=== PATIENT | female | born 2000 | race Caucasian/White ===

== ENCOUNTER 2020-04-17 09:05 | Emergency (ER) | payer MEDICAID ==
[~2020-04-17] VITALS: Ht 167.6 cm; Wt 75.0 kg
[2020-04-17] MEDS ORDERED: ACETAMINOPHEN 325MG TABLET PO ONE (09:45)
[2020-04-17] MEDS ORDERED: KETOROLAC 30MG/ML VIAL IM ONE (11:00)
[2020-04-17 11:04] VITALS: BP 101/54
== END 2020-04-17 11:21 | disposition home or self-care (01) ==
LOC: ER 09:05
DX: R05 Cough (principal); Z20.828 Contact with and (suspected) exposure to other viral communicable diseases; J45.909 Unspecified asthma, uncomplicated; J02.9 Acute pharyngitis, unspecified
CPT/HCPCS: 71045; 81025; 96372; 99284; C9803; J1885; U0003

== ENCOUNTER 2020-05-20 12:05 | Emergency (ER) | payer MEDICAID ==
[~2020-05-20] VITALS: Ht 160 cm; Wt 79.0 kg
[2020-05-20 12:06] VITALS: BP 126/68
[2020-05-20 13:40] LABS: CLARITY URINE CLEAR (CLEAR); COLOR URINE YELLOW (YELLOW); KETONES URINE NEGATIVE (NEGATIVE); LEUKOCYTE ESTERASE URINE 1+ (NEGATIVE); NITRITE URINE NEGATIVE (NEGATIVE); OCCULT BLOOD URINE NEGATIVE (NEGATIVE); PH URINE 6.5 (4.5-8.0); PROTEIN URINE NEGATIVE (NEGATIVE); SPECIFIC GRAVITY URINE 1.023 (1.005-1.030); UROBILINOGEN URINE 0.2 E.U./dL (0.2-1.0)
[2020-05-20] MEDS ORDERED: CEFTRIAXONE SODIUM 250 MG/VIAL IM ONE (13:45)
[2020-05-20] MEDS ORDERED: LIDOCAINE HCL 1% 20ML VIAL (Pyxis) INJ INFIL ONE (13:45)
[2020-05-20] MEDS ORDERED: AZITHROMYCIN 500 MG TABLET PO ONE (13:45)
== END 2020-05-20 14:50 | disposition home or self-care (01) ==
LOC: ER 12:05
DX: A64 Unspecified sexually transmitted disease (principal); J45.909 Unspecified asthma, uncomplicated
CPT/HCPCS: 81003; 81025; 96372; 99283; J0696; J3490

== ENCOUNTER 2020-06-21 10:15 | Emergency (ER) | payer MEDICAID ==
[~2020-06-21] VITALS: Ht 160 cm; Wt 82.0 kg
[2020-06-21 10:34] VITALS: BP 108/66
[2020-06-21] MEDS ORDERED: LIDOCAINE HCL/PF 1% 10 MG/ML 5ML VIAL IJ ONE (11:00)
[2020-06-21] MEDS ORDERED: AZITHROMYCIN 500 MG TABLET PO ONE (11:00)
[2020-06-21] MEDS ORDERED: CEFTRIAXONE SODIUM 250 MG/VIAL IM ONE (11:00)
[2020-06-21 11:37] LABS: CLARITY URINE CLOUDY (CLEAR); COLOR URINE YELLOW (YELLOW); KETONES URINE NEGATIVE (NEGATIVE); LEUKOCYTE ESTERASE URINE 2+ (NEGATIVE); NITRITE URINE NEGATIVE (NEGATIVE); OCCULT BLOOD URINE NEGATIVE (NEGATIVE); PROTEIN URINE NEGATIVE (NEGATIVE); SPECIFIC GRAVITY URINE 1.025 (1.005-1.030); UROBILINOGEN URINE 0.2 E.U./dL (0.2-1.0)
[2020-06-24 07:10] LABS: NEISSERIA GONORRHOEAE NAA Negative (Negative)
== END 2020-06-21 13:15 | disposition home or self-care (01) ==
LOC: ER 10:15
DX: N39.0 Urinary tract infection, site not specified (principal); N89.8 Other specified noninflammatory disorders of vagina; J45.909 Unspecified asthma, uncomplicated
CPT/HCPCS: 81003; 81025; 87491; 87591; 99283; J0696; J3490

== ENCOUNTER 2020-09-03 12:17 | Emergency (ER) | payer MEDICAID ==
[~2020-09-03] VITALS: Ht 157.5 cm; Wt 65.0 kg
[2020-09-03 12:46] VITALS: BP 110/68
[2020-09-03] MEDS ORDERED: AZITHROMYCIN 500 MG TABLET PO ONE (15:15)
[2020-09-03] MEDS ORDERED: LIDOCAINE HCL 1% 20ML VIAL (Pyxis) INJ INFIL ONE (15:15)
[2020-09-03] MEDS ORDERED: CEFTRIAXONE SODIUM 500 MG/VIAL IM ONE (15:15)
== END 2020-09-03 15:25 | disposition left against medical advice (07) ==
LOC: ER 12:17
DX: Z20.2 Contact with and (suspected) exposure to infections with a predominantly sexual mode of transmission (principal); T76.21XA Adult sexual abuse, suspected, initial encounter; N89.8 Other specified noninflammatory disorders of vagina; R03.0 Elevated blood-pressure reading, without diagnosis of hypertension
CPT/HCPCS: 99281; J3490; J0696

== ENCOUNTER 2020-09-04 16:49 | Emergency (ER) | payer MEDICAID ==
[~2020-09-04] VITALS: Ht 160 cm; Wt 80.0 kg
[2020-09-04] MEDS ORDERED: ONDANSETRON 4MG ODT PO STA (17:04)
[2020-09-04] MEDS ORDERED: LIDOCAINE HCL 1% 20ML VIAL (Pyxis) INJ INFIL ONE (17:15)
[2020-09-04] MEDS ORDERED: AZITHROMYCIN 500 MG TABLET PO ONE (17:15)
[2020-09-04] MEDS ORDERED: METRONIDAZOLE 500MG TABLET PO ONE (17:15)
[2020-09-04] MEDS ORDERED: CEFTRIAXONE SODIUM 250 MG/VIAL IM ONE (17:15)
[2020-09-04 17:58] LABS: CLARITY URINE CLOUDY (CLEAR); COLOR URINE YELLOW (YELLOW); KETONES URINE NEGATIVE (NEGATIVE); LEUKOCYTE ESTERASE URINE 2+ (NEGATIVE); NITRITE URINE NEGATIVE (NEGATIVE); OCCULT BLOOD URINE NEGATIVE (NEGATIVE); PROTEIN URINE NEGATIVE (NEGATIVE); SPECIFIC GRAVITY URINE 1.024 (1.005-1.030); UROBILINOGEN URINE 0.2 E.U./dL (0.2-1.0)
[2020-09-04 18:41] VITALS: BP 101/66
[2020-09-10 08:45] LABS: NEISSERIA GONORRHOEAE NAA Negative (Negative)
== END 2020-09-04 18:42 | disposition home or self-care (01) ==
LOC: ER 16:49
DX: T74.21XA Adult sexual abuse, confirmed, initial encounter (principal); N39.0 Urinary tract infection, site not specified; N76.0 Acute vaginitis
CPT/HCPCS: 81003; 81025; 87491; 87591; 96372; 99284; J0696; J3490; Q0162

== ENCOUNTER 2021-06-06 18:21 | Observation (INO) | payer OTHER, MEDICAID ==
[~2021-06-06] VITALS: Ht 157.5 cm; Wt 86.6 kg
[2021-06-06] MEDS ORDERED: LACTATED RINGERS 1,000 ML IV SCH (19:30)
[2021-06-06] MEDS ORDERED: ONDANSETRON HCL 4MG/2ML INJ IV PRN (19:30)
[2021-06-06 20:23] LABS: BASOPHILS % 0.6 % (0.0-2.0); EOSINOPHILS % 0.3 % (0.0-5.0); HEMATOCRIT. 34.1 % (36.0-48.0); HEMOGLOBIN. 11.5 g/dL (12.0-16.0); LYMPHOCYTES % 29.1 % (20.0-50.0); MEAN CORPUSCULAR HEMOGLOBIN 29.1 pg (28.0-32.0); MEAN CORPUSCULAR VOLUME 86.1 fL (81.0-99.0); MEAN PLATELET VOLUME 7.2 fl (7.4-10.4); MONOCYTES % 7.8 % (2.0-8.0); NEUTROPHILS % 62.2 % (40.0-76.0); PLATELET 328 x1000/uL (130-400); RED BLOOD CELL COUNT 3.96 mill/uL (4.2-5.4); RED CELL DISTRIBUTION WIDTH 14.8 % (11.6-14.6)
[2021-06-06 20:30] LABS: CHLORIDE 108 mEq/L (98-107)
[2021-06-06] MEDS ORDERED: PRENATAL VITAMINS (20:35)
[2021-06-06 20:59] LABS: CLARITY URINE CLOUDY (CLEAR); COLOR URINE YELLOW (YELLOW); KETONES URINE 1+ (NEGATIVE); LEUKOCYTE ESTERASE URINE 3+ (NEGATIVE); NITRITE URINE NEGATIVE (NEGATIVE); OCCULT BLOOD URINE NEGATIVE (NEGATIVE); PH URINE 6.5 (4.5-8.0); PROTEIN URINE 1+ (NEGATIVE); SPECIFIC GRAVITY URINE 1.025 (1.005-1.030); UROBILINOGEN URINE 0.2 E.U./dL (0.2-1.0)
== END 2021-06-06 21:01 | disposition left against medical advice (07) ==
LOC: 8 EST LDRP 18:21
PROVIDERS: ADMIT Obstetrics & Gynecology; ATTEND Obstetrics & Gynecology
DX: O26.893 Other specified pregnancy related conditions, third trimester (principal); R10.10 Upper abdominal pain, unspecified; O21.2 Late vomiting of pregnancy; Z3A.31 31 weeks gestation of pregnancy
CPT/HCPCS: 36415; 59025; 76805; 76818; 80053; 81003; 85025; 96361; 96374; G0378; J2405; 96360; 99281

== ENCOUNTER 2022-04-25 01:37 | Emergency (ER) | payer MEDICAID, OTHER ==
[~2022-04-25] VITALS: Ht 160 cm; Wt 88.3 kg
[~2022-04-25 01:37] MED LIST: PRENATAL VITAMINS
[2022-04-25] MEDS ORDERED: ASPIRIN 81MG TABLET PO ONE (02:30)
[2022-04-25] MEDS ORDERED: ALBU90AE INH (03:32)
[2022-04-25 04:16] VITALS: BP 111/77
== END 2022-04-25 04:20 | disposition home or self-care (01) ==
LOC: ER 02:04
DX: U07.1 COVID-19 (principal); B34.9 Viral infection, unspecified; I49.9 Cardiac arrhythmia, unspecified
CPT/HCPCS: 71045; 93005; 99283; Z7610